=== PATIENT | female | born 1990 | race Caucasian/White ===

== ENCOUNTER 2019-05-11 17:31 | Emergency (ER) | payer MEDICAID ==
[~2019-05-11] VITALS: Ht 152.4 cm; Wt 41.7 kg
[~2019-05-11 17:31] MED LIST: ALBUTEROL SULF8.5 GM INH; AZITHROMYCIN250 MG ORAL; IBUPROFEN600 MG ORAL; KEFLEX500 MG ORAL; NORCO1 EA ORAL; PROMETHAZINE-C118 M1 ORAL; ZOFRAN ODT4 MG ORAL
[2019-05-11 18:05] VITALS: BP 97/65
--- NOTE | 2019-05-11 18:05 | NUR ---
ED Nurse Note: pt presents to ED with flu-like sympotoms since last PM. pt states that she has been feeling fevers and chills as well as coughing. her test feels tight and congested. pt states she took OTC antihitamines and cold medications but they did not improve her symptoms much. she rates the pain in her chest as a 7/10 when its bad but it comes and goes between a 7 and a 0.
[2019-05-11 18:40] LABS: APPEARANCE,URINE CLEAR; BILIRUBIN, URINE NEGATIVE (NEGATIVE); COLOR,URINE PALE YELLOW; GLUCOSE, URINE (UA) NEGATIVE (NEGATIVE); KETONES,URINE NEGATIVE (NEGATIVE); LEUKOCYTE ESTERASE ,URINE NEGATIVE (NEGATIVE); NITRITE,URINE NEGATIVE (NEGATIVE); PH,URINE 6.5 (4.5-8.0); PROTEIN,URINE NEGATIVE (NEGATIVE); UROBILINOGEN,URINE NORMAL MG/DL (0.0-1.0)
[2019-05-11 18:49] LABS: BASOPHILS % (AUTO) 1.1 % (0.0-2.0); EOSINOPHILS % (AUTO) 5.2 % (0.0-3.0); HEMATOCRIT 39.6 % (37.0-47.0); HEMOGLOBIN 13.3 G/DL (12.0-16.0); MEAN CORPUSCULAR VOLUME 95 FL (80-99); MONOCYTES % (AUTO) 9.9 % (1.0-10.0); NEUTROPHILS % (AUTO) 65.8 % (45.0-75.0); PLATELET COUNT 203 K/UL (150-450); RED BLOOD COUNT 4.18 M/UL (4.20-5.40); WHITE BLOOD COUNT 7.5 K/UL (4.8-10.8)
[2019-05-11 18:57] LABS: ANION GAP 7 mmol/L (5-15); BLOOD UREA NITROGEN 12 mg/dL (7-18); CARBON DIOXIDE 26 MMOL/L (21-32); CHLORIDE 107 MMOL/L (98-107); CREATININE 0.6 MG/DL (0.55-1.30); SODIUM 140 MMOL/L (136-145)
[2019-05-11 19:01] LABS: ALANINE AMINOTRANSFERASE 52 U/L (12-78); ALBUMIN 3.7 G/DL (3.4-5.0); ALBUMIN/GLOBULIN RATIO 0.8 (1.0-2.7); ALKALINE PHOSPHATASE 70 U/L (46-116); ASPARTATE AMINO TRANSFERASE 23 U/L (15-37); BILIRUBIN,TOTAL 0.2 MG/DL (0.2-1.0)
--- NOTE | 2019-05-11 19:20 | NUR ---
HAND-OFF: Report given to MARILEE Ayala. pt is in stable condition, in no acute distress
--- NOTE | 2019-05-11 19:25 | Emergency Room Report ---
History of Present Illness General Chief Complaint: Upper Respiratory Illness Source: Patient Present Illness HPI 28-year-old female with history of thyroid cancer here complaining of 1 day of sore throat, cough and congestion and chest pain. Patient reports that she was scheduled to thyroid nodules removed today however had to reschedule as patient has been feeling sick. Patient reports that she has not been coughing however feels this tightness in chest without radiation. Denies palpitation, dizziness , abdominal pain however does complain of nausea but has not vomited. Denies diarrhea, fever and chills. Is sitting comfortably and has a stable vital signs. Has not taken medication other than Tylenol for symptom relief. Patient is aware that should not take any blood thinners prior to operation. Denies abdominal pain at this time. Denies shortness of breath, and all other associated symptoms. Denies urinary symptoms. Allergies: Coded Allergies: No Known Allergies (Unverified , 01/09/13) Patient History Past Medical History: see triage record Past Surgical History: unable to obtain Pertinent Family History: none Last Menstrual Period: 04/12/2019 Now: No Immunizations: UTD Reviewed Nursing Documentation: PMH: Agreed; PSxH: Agreed Nursing Documentation-PMH Past Medical History: No History, Except For Review of Systems All Other Systems: negative except mentioned in HPI Physical Exam Vital Signs Date Time Temp Pulse Resp B/P (MAP) Pulse Ox O2 Delivery O2 Flow Rate FiO2 05/11/19 17:50 98.6 94 16 97/65 (76) 99 Room Air Sp02 EP Interpretation: reviewed, normal General Appearance: no apparent distress, alert, GCS 15, non-toxic Head: normocephalic, atraumatic Eyes: bilateral eye normal inspection, bilateral eye PERRL ENT: hearing grossly normal, normal pharynx, no angioedema, normal voice Neck: full range of motion, supple/symm/no masses Respiratory: chest non-tender, lungs clear, normal breath sounds, no wheezing, speaking full sentences Cardiovascular #1: regular rate, rhythm, no edema, no murmur Gastrointestinal: normal inspection, non tender, soft Genitourinary: normal inspection, no CVA tenderness Musculoskeletal: back normal, gait/station normal, normal range of motion, non- tender Neurologic: alert, oriented x3, responsive, motor strength/tone normal, sensory intact, speech normal Psychiatric: judgement/insight normal, memory normal, mood/affect normal, no suicidal/homicidal ideation Skin: no rash Lymphatic: no adenopathy Medical Decision Making PA Attestation Diagnosis and treatment plans were reviewed and discussed with my supervising physician Dr. Sterling Diagnostic Impression: Primary Impression: Upper respiratory infection Additional Impression: Chest pain ER Course 28-year-old female with history of thyroid cancer here complaining of 1 day of sore throat, cough and congestion and chest pain. Patient reports that she was scheduled to thyroid nodules removed today however had to reschedule as patient has been feeling sick. Patient reports that she has not been coughing however feels this tightness in chest without radiation. Denies palpitation, dizziness , abdominal pain however does complain of nausea but has not vomited. Denies diarrhea, fever and chills. Is sitting comfortably and has a stable vital signs. Has not taken medication other than Tylenol for symptom relief. Patient is aware that should not take any blood thinners prior to operation. Denies abdominal pain at this time. Denies shortness of breath, and all other associated symptoms. Denies urinary symptoms. Ddx considered but are not limited to: strep pharyngitis, URI, tonsillitis, peritonsillar abscess, influneza, chest pain secondary to cardiac reasons, anxiety, unspecified chest pain Vital signs: are WNL, pt. is afebrile H&PE are most consistent with: Upper respiratory infection, unspecified chest pain ORDERS: CBC, CMP, UA, tox screen, amoxicillin, Zofran, rapid influenza test ED INTERVENTIONS: None required at this time. DISCHARGE: At this time pt. is stable for d/c to home. Will provide printed patient care instructions, and any necessary prescriptions. Care plan and follow up instructions have been discussed with the patient prior to discharge. Patient was given a prescription for antibiotic as it is presumed to be bacterial due to low immune system and cancer. Patient to follow-up with primary care provider and reschedule removal of thyroid nodules. If worsening symptoms return to the emergency room. Also chest pain can be secondary to anxiety. However needs to follow-up with primary care and possibly with master printer. EKG Diagnostic Results Rate: normal Rhythm: NSR ST Segments: no acute changes Chest X-Ray Diagnostic Results Chest X-Ray Diagnostic Results : Chest X-Ray Ordered: Yes # of Views/Limited/Complete: 1 View Indication: Chest Pain EP Interpretation: Maria E FRANCES Xray: Interpretation reviewed, by supervising MD, and agrees with findings. Interpretation: no consolidation, no effusion, no pneumothorax Impression: No acute disease Electronically Signed by: Noe Chávez PA-C Last Vital Signs Date Time Temp Pulse Resp B/P (MAP) Pulse Ox O2 Delivery O2 Flow Rate FiO2 05/11/19 18:05 94 16 Room Air 05/11/19 18:05 98.6 97/65 99 Disposition: HOME, SELF-CARE Condition: Stable Scripts Ondansetron (Zofran) 4 Mg Tablet 4 MG ORAL Q8HR PRN for Nausea & Vomiting, #10 TAB Prov: Noe Hicks 05/11/19 Amoxicillin* (AMOXIL*) 500 Mg Capsule 500 MG ORAL EVERY 12 HOURS for 7 Days, #14 CAP Prov: Noe Hicks 05/11/19 Patient Instructions: Upper Respiratory Infection, Adult Additional Instructions: Take medication as directed follow-up with your primary care provider if worsening symptoms return to the emergency room Noe Hicks May 11, 2019 19:25
[2019-05-11] MEDS ORDERED: ZOFRAN4 M1 ORAL (19:27)
[2019-05-11] MEDS ORDERED: AMOXICILLIN500 MG ORAL (19:27)
[2019-05-11 19:30] VITALS: BP 104/67
--- NOTE | 2019-05-11 19:30 | NUR ---
ER DISCHARGE NOTE: Patient is cleared to be discharged per ERMD, pt is aox4, on room air, with stable vital signs. pt was given dc and prescription instructions, pt was able to verbalize understanding, pt id band and iv site removed without complications. pt is able to ambulate with steady gait. pt took all belongings.
[2019-05-11 19:35] VITALS: BP 104/67
--- NOTE | 2019-05-12 11:42 | Diagnostic Imaging Report ---
Indication: Chest pain Comparison: 01/10/2013 A single view chest radiograph was obtained. Findings: Cardiomediastinal appearance is within normal limits for age. The lungs are clear. Pulmonary vascularity is appropriate. The diaphragmatic contour is smooth and costophrenic angles are sharp. No pleural effusions are identified. The bones are unremarkable. Impression: No acute findings
--- NOTE | 2019-05-13 17:34 | Cardiology Report ---
APPROVED REPORT EKG Measurement Heart [id number] ME [id number] Normal sinus rhythm Normal ECG
== END 2019-05-11 19:35 | disposition home or self-care (01) ==
LOC: EMR 19:35
DX: J06.9 Acute upper respiratory infection, unspecified (principal); R07.9 Chest pain, unspecified; Z85.850 Personal history of malignant neoplasm of thyroid
CPT/HCPCS: 36415; 71045; 80053; 80307; 81001; 81025; 85025; 86710; 93005; Z7502; 99283